=== PATIENT | male | born 1950 | race Caucasian/White ===

== ENCOUNTER 2022-07-16 19:01 | Emergency (ER) | payer MEDICARE, MEDICAID ==
[~2022-07-16] VITALS: Ht 167.7 cm; Wt 56.6 kg
--- NOTE | 2022-07-16 19:14 | ED General ---
General Stated Complaint: AMS Source of Information: Patient, EMS Exam Limitations: No Limitations History of Present Illness Date Seen by Provider: Jul 16, 2022 Time Seen by Provider: 19:04 Initial Comments 72-year-old male with past medical history of dementia most notably coming in via EMS from medical [place] due to altered mentation. The patient was running around the senior care, entering other residents rooms, becoming very combative, stealing food from residents, yelling. They were unable to get control of him. They contacted his physician, Dr. Nguyen who recommended the patient go to the ER for evaluation and potential admission to [facility]. They noted skin tears to his right forearm and left forearm. He is unsure of his last tetanus vaccine. He denies pain anywhere at this time. Allergies and Home Medications Allergies Coded Allergies: No Known Drug Allergies (Unverified , 07/16/22) Patient Home Medication List Home Medication List Reviewed: Yes Review of Systems Review of Systems Constitutional: No fever EENTM: no symptoms reported Respiratory: no symptoms reported Cardiovascular: no symptoms reported Gastrointestinal: no symptoms reported Genitourinary: no symptoms reported Musculoskeletal: no symptoms reported Skin: see HPI Psychiatric/Neurological: No Symptoms Reported Hematologic/Lymphatic: No Symptoms Reported Immunological/Allergic: no symptoms reported All Other Systems Reviewed Negative Unless Noted: Yes Past Kzesyui-Moiezi-Mtxyuc Hx Patient Social History Tobacco Use?: No Past Medical History Surgeries: No Physical Exam Vital Signs Vital Signs - First Documented 07/16/22 19:17 Temp 37.0 Pulse 94 Resp 16 B/P (MAP) 170/93 (118) Pulse Ox 100 O2 Delivery Room Air Capillary Refill : Height, Weight, BMI Height: '" Weight: lbs. oz. kg; BMI Method: General Appearance: No Apparent Distress, WD/WN HEENT: PERRL/EOMI, Normal ENT Inspection, Pharynx Normal Neck: Full Range of Motion, Normal Inspection, Non Tender, Supple Respiratory: Chest Non Tender, Lungs Clear, Normal Breath Sounds, No Accessory Muscle Use, No Respiratory Distress Cardiovascular: Regular Rate, Rhythm, No Edema, Normal Peripheral Pulses Gastrointestinal: Normal Bowel Sounds, Non Tender, Soft; No Distended, No Guarding Back: Normal Inspection, No CVA Tenderness Extremity: Normal Capillary Refill, Normal Range of Motion, Non Tender, No Calf Tenderness, No Pedal Edema, Other (Superficial skin tears to the bilateral forearms) Neurologic/Psychiatric: No Motor/Sensory Deficits, Normal Mood/Affect, Other (Oriented to person and year only) Skin: Normal Color, Warm/Dry Lymphatic: No Adenopathy Progress/Results/Core Measures Suspected Sepsis SIRS Temperature: Pulse: Respiratory Rate: Laboratory Tests 07/16/22 19:15: White Blood Count 6.4 Blood Pressure / Mean: Laboratory Tests 07/16/22 19:15: Creatinine 1.21, Platelet Count 186, Total Bilirubin 0.2 Results/Orders Lab Results Laboratory Tests Test 07/16/22 19:15 Range/Units White Blood Count 6.4 4.3-11.0 10^3/uL Red Blood Count 3.58 L 4.30-5.52 10^6/uL Hemoglobin 10.5 L 13.3-17.7 g/dL Hematocrit 34 L 40-54 % Mean Corpuscular Volume 94 80-99 fL Mean Corpuscular Hemoglobin 29 25-34 pg Mean Corpuscular Hemoglobin Concent 31 L 32-36 g/dL Red Cell Distribution Width 13.6 10.0-14.5 % Platelet Count 186 130-400 10^3/uL Mean Platelet Volume 10.4 9.0-12.2 fL Immature Granulocyte % (Auto) 1 % Neutrophils (%) (Auto) 58 42-75 % Lymphocytes (%) (Auto) 26 12-44 % Monocytes (%) (Auto) 11 0-12 % Eosinophils (%) (Auto) 4 0-10 % Basophils (%) (Auto) 1 0-10 % Neutrophils # (Auto) 3.7 1.8-7.8 10^3/uL Lymphocytes # (Auto) 1.7 1.0-4.0 10^3/uL Monocytes # (Auto) 0.7 0.0-1.0 10^3/uL Eosinophils # (Auto) 0.2 0.0-0.3 10^3/uL Basophils # (Auto) 0.0 0.0-0.1 10^3/uL Immature Granulocyte # (Auto) 0.1 0.0-0.1 10^3/uL Sodium Level 140 135-145 MMOL/L Potassium Level 4.7 3.6-5.0 MMOL/L Chloride Level 104 98-107 MMOL/L Carbon Dioxide Level 23 21-32 MMOL/L Anion Gap 13 5-14 MMOL/L Blood Urea Nitrogen 26 H 7-18 MG/DL Creatinine 1.21 0.60-1.30 MG/DL Estimat Glomerular Filtration Rate 64 BUN/Creatinine Ratio 21 Glucose Level 161 H 70-105 MG/DL Calcium Level 8.8 8.5-10.1 MG/DL Corrected Calcium 8.7 8.5-10.1 MG/DL Magnesium Level 1.9 1.6-2.4 MG/DL Total Bilirubin 0.2 0.1-1.0 MG/DL Aspartate Amino Transf (AST/SGOT) 21 5-34 U/L Alanine Aminotransferase (ALT/SGPT) 15 0-55 U/L Alkaline Phosphatase 211 H 40-136 U/L Total Protein 6.9 6.4-8.2 GM/DL Albumin 4.1 3.2-4.5 GM/DL Lipase 68 8-78 U/L My Orders Orders - LOKI ODEN MD Ct Head Wo (07/16/22 19:07) Chest 1 View Ap/Pa Only (07/16/22 19:07) Cbc With Automated Diff (07/16/22 19:07) Comprehensive Metabolic Panel (07/16/22 19:07) Lipase (07/16/22 19:07) Magnesium (07/16/22 19:07) Ua Culture If Indicated (07/16/22 19:07) Dipht,Pertuss(Acell),Tet Adult (Boostrix (07/16/22 19:15) Olanzapine Orally Dissolve Tab (Zyprexa (07/16/22 19:15) Ceftriaxone 1 Gm Pre-Mix (Rocephin 1 Gm (07/16/22 19:45) Ed Iv/Invasive Line Start (07/16/22 19:57) Doxycycline Hyclate Tablet (Vibramycin T (07/16/22 20:04) Medications Given in ED Current Medications Medications Dose Ordered Sig/Baltazar Route Start Time Stop Time Status Last Admin Dose Admin Ceftriaxone Sodium/Dextrose 50 ml @ 100 mls/hr ONCE ONCE IV 07/16/22 19:45 07/16/22 20:14 DC 07/16/22 19:55 100 MLS/HR Diphtheria/ Tetanus/Acell Pertussis 0.5 ml ONCE ONCE IM 07/16/22 19:15 07/16/22 19:16 DC 07/16/22 19:35 0.5 ML Olanzapine 10 mg ONCE ONCE PO 07/16/22 19:15 07/16/22 19:16 DC 07/16/22 19:35 10 MG Vital Signs/I&O 07/16/22 07/16/22 19:17 20:27 Temp 37.0 Pulse 94 92 Resp 16 14 B/P (MAP) 170/93 (118) 160/92 Pulse Ox 100 99 O2 Delivery Room Air Room Air Capillary Refill : Progress Note : Progress Note 72-year-old male with above history coming in due to combative behavior from the senior care. ABCs were intact and vitals were stable on presentation. The patient was confused but cooperative with us. He had moments of escalation but he was able to be verbally de-escalated. Basic labs essentially unremarkable. Chest x-ray with an opacity in his left lung base. Potentially this is adding to the confusion. He was given ceftriaxone as well as doxycycline. CT head with no acute abnormalities. I contacted Dr. Nguyen for admission given he is his primary physician, and he recommended a facility that has a geriatric psychiatry available. I then contacted Dr. Brown and she excepted the patient to [facility]. Diagnostic Imaging Diagonstic Imaging: Xray (chest), CT (head) Comments [facility]. [place], [place] NAME: RALPH GAN [facility] REC#: [id number] PT STATUS: REG ER : 1950 PHYSICIAN: LOKI ODEN MD ADMIT DATE: 07/16/22/ER FS Draft Date of Exam:07/16/22 CHEST 1 VIEW AP/PA ONLY EXAMINATION: Chest 1 view. HISTORY: Altered mental status. COMPARISON: None available. FINDINGS: The lung volumes are normal. Patchy opacities are seen in the left lung base with small left pleural effusion. No large pneumothorax is seen. The cardiomediastinal silhouette is normal in size and contour. There is calcified aortic atherosclerotic plaque. No acute osseous abnormality is seen. IMPRESSION: Left basilar opacities with small left pleural effusion. Dictated on workstation # [id number] Dict: 07/16/221929 Trans: 07/16/221933 [facility] [id number] Interpreted by: PERFECTO PALACIOS DO Electronically signed by: [facility] [place] [place] NAME: RALPH GAN [facility] REC#: [id number] PT STATUS: REG ER : 1950 PHYSICIAN: LOKI ODEN MD ADMIT DATE: 07/16/22/ER FS Draft Date of Exam:07/16/22 CT HEAD WO INDICATION: Acute mental status change, confusion. EXAMINATION: CT brain without contrast, 07/16/2022. All CT scans use one or more of the following dose optimizing techniques: automated exposure control, MA and/or KvP adjustment based on patient size and exam type or iterative reconstruction. FINDINGS: There is diffuse chronic ischemic disease in a periventricular and deep white matter distribution with an area of encephalomalacia in the left posterior parietal lobe. There is age-appropriate atrophy. There is no acute hemorrhage or infarct. No mass, mass effect or midline shift. No hydrocephalus. The calvarium is intact. The paranasal sinuses and mastoid air cells unremarkable for acute abnormality. IMPRESSION: Chronic findings with no superimposed acute process. Dictated on workstation # [id number] Dict: 07/16/221930 Trans: 07/16/221934 [facility] [id number] Interpreted by: RUTHIE LOVE MD Electronically signed by: Departure Impression Primary Impression: Opacity of lung on imaging study Additional Impression: Combative behavior Disposition: XFER SHT-TRM HOSP Condition: Stable Transfer Transfer Reason: Exceeds level of care (needs geriatric psych facility) Time Spoke to Accepting Phy: 20:00 Transfer Progress Notes Accepted by Dr. Brown to [facility] Transfer Time: 20:40 Transfer Facility: [facility] Method of Transfer: EMS Departure-Patient Inst. Referrals: GAB NGUYEN MD (PCP/Family) Primary Care Physician LOKI ODEN MD Jul 16, 2022 19:14
[2022-07-16] MEDS ORDERED: OLANZapine 5 MG ODT (ZyPREXA ZYDIS) PO ONE (19:15)
[2022-07-16] MEDS ORDERED: TETANUS,DIPTH,PERTUSS P/F (BOOSTRIX) 0.5 ML VIAL IM ONE (19:15)
[2022-07-16 19:27] LABS: BASOPHILS % (AUTO) 1 % (0-10); EOSINOPHILS # (AUTO) 0.2 10^3/uL (0.0-0.3); EOSINOPHILS % (AUTO) 4 % (0-10); HEMATOCRIT 34 % (40-54); HEMOGLOBIN 10.5 g/dL (13.3-17.7); LYMPHOCYTES # (AUTO) 1.7 10^3/uL (1.0-4.0); LYMPHOCYTES % (AUTO) 26 % (12-44); MEAN CORPUSCULAR HEMOGLOBIN 29 pg (25-34); MEAN CORPUSCULAR HGB CONC 31 g/dL (32-36); MEAN CORPUSCULAR VOLUME 94 fL (80-99); MEAN PLATELET VOLUME 10.4 fL (9.0-12.2); MONOCYTES # (AUTO) 0.7 10^3/uL (0.0-1.0); MONOCYTES % (AUTO) 11 % (0-12); NEUTROPHILS # (AUTO) 3.7 10^3/uL (1.8-7.8); NEUTROPHILS % (AUTO) 58 % (42-75); PLATELET COUNT 186 10^3/uL (130-400); WHITE BLOOD COUNT 6.4 10^3/uL (4.3-11.0)
--- NOTE | 2022-07-16 19:34 | Diagnostic Imaging Report ---
EXAMINATION: Chest 1 view. HISTORY: Altered mental status. COMPARISON: None available. FINDINGS: The lung volumes are normal. Patchy opacities are seen in the left lung base with small left pleural effusion. No large pneumothorax is seen. The cardiomediastinal silhouette is normal in size and contour. There is calcified aortic atherosclerotic plaque. No acute osseous abnormality is seen. IMPRESSION: Left basilar opacities with small left pleural effusion. Dictated by: Dictated on workstation # [id number]
--- NOTE | 2022-07-16 19:35 | Diagnostic Imaging Report ---
INDICATION: Acute mental status change, confusion. EXAMINATION: CT brain without contrast, 07/16/2022. All CT scans use one or more of the following dose optimizing techniques: automated exposure control, MA and/or KvP adjustment based on patient size and exam type or iterative reconstruction. FINDINGS: There is diffuse chronic ischemic disease in a periventricular and deep white matter distribution with an area of encephalomalacia in the left posterior parietal lobe. There is age-appropriate atrophy. There is no acute hemorrhage or infarct. No mass, mass effect or midline shift. No hydrocephalus. The calvarium is intact. The paranasal sinuses and mastoid air cells unremarkable for acute abnormality. IMPRESSION: Chronic findings with no superimposed acute process. Dictated by: Dictated on workstation # [id number]
[2022-07-16] MEDS ORDERED: cefTRIAXone 1 GM PRE-MIX 50 ML IV ONE (19:45)
[2022-07-16 19:47] LABS: POTASSIUM 4.7 MMOL/L (3.6-5.0)
[2022-07-16 19:48] LABS: ALBUMIN 4.1 GM/DL (3.2-4.5); BILIRUBIN,TOTAL 0.2 MG/DL (0.1-1.0); CALCIUM 8.8 MG/DL (8.5-10.1); CREATININE SERUM 1.21 MG/DL (0.60-1.30); MAGNESIUM 1.9 MG/DL (1.6-2.4); TOTAL PROTEIN 6.9 GM/DL (6.4-8.2)
[2022-07-16] MEDS ORDERED: DOXYCYCLINE 100 MG (VIBRAMYCIN) TABLET PO STA (20:04)
[2022-07-16 20:27] VITALS: BP 160/92
== END 2022-07-16 20:45 | disposition short-term general hospital (02) ==
LOC: ER FS 19:03
DX: R91.8 Other nonspecific abnormal finding of lung field (principal); R46.89 Other symptoms and signs involving appearance and behavior; S51.812A Laceration without foreign body of left forearm, initial encounter; S51.811A Laceration without foreign body of right forearm, initial encounter; Z23 Encounter for immunization; X58.XXXA Exposure to other specified factors, initial encounter; Y93.01 Activity, walking, marching and hiking; Y92.129 Unspecified place in nursing home as the place of occurrence of the external cause
CPT/HCPCS: 36415; 70450; 71045; 80053; 83690; 83735; 85025; 90715

== ENCOUNTER → 2022-10-07 | Outpatient (CLI) | payer MEDICARE, MEDICAID ==
[2022-10-07 17:47] LABS: HEMATOCRIT 39 % (40-54); HEMOGLOBIN 12.3 g/dL (13.3-17.7); MEAN CORPUSCULAR HEMOGLOBIN 29 pg (25-34); MEAN CORPUSCULAR HGB CONC 32 g/dL (32-36); MEAN CORPUSCULAR VOLUME 89 fL (80-99); MEAN PLATELET VOLUME 11.1 fL (9.0-12.2); PLATELET COUNT 179 10^3/uL (130-400); WHITE BLOOD COUNT 8.6 10^3/uL (4.3-11.0)
[2022-10-07 18:08] LABS: POTASSIUM 4.7 MMOL/L (3.6-5.0)
[2022-10-07 18:09] LABS: ALBUMIN 4.2 GM/DL (3.2-4.5); BILIRUBIN,TOTAL 0.5 MG/DL (0.1-1.0); CALCIUM 9.1 MG/DL (8.5-10.1); CREATININE SERUM 1.09 MG/DL (0.60-1.30); TOTAL PROTEIN 7.2 GM/DL (6.4-8.2)
== END ==
PROVIDERS: ATTEND Pediatrics
DX: Z01.89 Encounter for other specified special examinations (principal)
CPT/HCPCS: 80053; 85027

== ENCOUNTER → 2022-10-19 | Outpatient (CLI) | payer MEDICARE, MEDICAID ==
[2022-10-19 14:45] LABS: HEMATOCRIT 37 % (40-54); HEMOGLOBIN 11.9 g/dL (13.3-17.7); MEAN CORPUSCULAR HEMOGLOBIN 28 pg (25-34); MEAN CORPUSCULAR HGB CONC 32 g/dL (32-36); MEAN CORPUSCULAR VOLUME 89 fL (80-99); MEAN PLATELET VOLUME 10.7 fL (9.0-12.2); PLATELET COUNT 209 10^3/uL (130-400); WHITE BLOOD COUNT 7.1 10^3/uL (4.3-11.0)
[2022-10-19 15:16] LABS: BILIRUBIN,TOTAL 0.6 MG/DL (0.1-1.0); CREATININE SERUM 1.21 MG/DL (0.60-1.30); POTASSIUM 4.5 MMOL/L (3.6-5.0); TOTAL PROTEIN 6.8 GM/DL (6.4-8.2)
== END ==
LOC: LAB FS 14:29
PROVIDERS: ATTEND Pediatrics
DX: U07.1 COVID-19 (principal)
CPT/HCPCS: 36415; 80053; 85027